=== PATIENT | male | born 1950 | race Caucasian/White ===

== ENCOUNTER 2017-08-03 20:53 | Inpatient (IN) | payer OTHER ==
[~2017-08-03] VITALS: Ht 170.2 cm; Wt 70.0 kg
[~2017-08-03 20:53] MED LIST: ALEVE220 M2 PO; ASPIR-TRIN325 M1 PO; BUSPAR10 MG PO; CHOLESTROL; EPIPEN ADU0.3 MG/0.3 IM; HTN MED; KEFLEX500 MG PO; LEXAPRO5 MG PO; LISINOPRIL10 MG PO; OMEGA-31000 M1 PO; PRAVACHOL20 MG PO; omega 3 PO
[2017-08-04 06:11] VITALS: BP 127/68
[2017-08-04 15:07] VITALS: BP 133/77
[2017-08-04 18:18] VITALS: BP 163/74
[2017-08-04 19:10] VITALS: BP 137/81
[2017-08-04 23:15] VITALS: BP 135/80
[2017-08-05 00:35] VITALS: BP 135/80
[2017-08-05 04:35] VITALS: BP 122/69
[2017-08-05 07:36] VITALS: BP 107/58
[2017-08-05 11:45] VITALS: BP 126/70
[2017-08-05 16:37] VITALS: BP 138/68
[2017-08-06 00:11] VITALS: BP 139/78
[2017-08-06] MEDS ORDERED: TIZANIDINE HCL4 MG PO (07:28)
[2017-08-06] MEDS ORDERED: HYDROCODON-ACE1 EAC7 PO (07:28)
[2017-08-06 08:08] VITALS: BP 158/89
[2017-08-06] MEDS ORDERED: ADULT FOLDING1 EACH MC (11:33)
== END 2017-08-06 12:05 | disposition home or self-care (01) | DRG 460 ==
LOC: ENRESERV 20:53 → 2SOUTH 08-04 05:26 → ENRESERV 08-04 12:50 → 2SOUTH 08-04 14:02 → 3EAST 08-04 14:19 → 2SOUTH 08-04 16:15 → 3EAST 08-06 12:05
DX: M48.07 Spinal stenosis, lumbosacral region (principal); M51.17 Intervertebral disc disorders with radiculopathy, lumbosacral region; M99.03 Segmental and somatic dysfunction of lumbar region; I10 Essential (primary) hypertension; E78.5 Hyperlipidemia, unspecified; G43.909 Migraine, unspecified, not intractable, without status migrainosus; G62.9 Polyneuropathy, unspecified; M19.90 Unspecified osteoarthritis, unspecified site; G90.511 Complex regional pain syndrome I of right upper limb; K21.9 Gastro-esophageal reflux disease without esophagitis; F32.9 Major depressive disorder, single episode, unspecified; F41.9 Anxiety disorder, unspecified; Z79.82 Long term (current) use of aspirin; Z87.891 Personal history of nicotine dependence
CPT/HCPCS: 72100; 76000; 86850; 86900; 86901; C1713; C1769; C1821; J0131; J0330; J0690; J1100; J1170; J2175; J2250; J2405; J2710; J3010; J3480

== ENCOUNTER 2017-08-20 10:53 | Emergency (ER) | payer OTHER ==
[~2017-08-20] VITALS: Ht 170.2 cm; Wt 62.4 kg
[~2017-08-20 10:53] MED LIST changes: +ADULT FOLDING1 EACH MC; +HYDROCODON-ACE1 EAC7 PO; +TIZANIDINE HCL4 MG PO
[2017-08-20] MEDS ORDERED: FISH OIL 1,0001 EA10 PO (13:20)
[2017-08-20] MEDS ORDERED: ASPIRIN325 MG PO (13:20)
[2017-08-20] MEDS ORDERED: LOTRISONE15 GM TP (14:03)
[2017-08-20] MEDS ORDERED: ATARAX,VISTARIL50 MG PO (14:03)
[2017-08-20 14:37] VITALS: BP 124/81
== END 2017-08-20 14:38 | disposition home or self-care (01) ==
LOC: EME 10:53
DX: R21 Rash and other nonspecific skin eruption (principal); L29.9 Pruritus, unspecified; Z98.890 Other specified postprocedural states; Z88.5 Allergy status to narcotic agent

== ENCOUNTER 2017-08-31 13:12 | Emergency (ER) | payer OTHER ==
[~2017-08-31] VITALS: Ht 167.6 cm; Wt 62.2 kg
[~2017-08-31 13:12] MED LIST changes: +ASPIRIN325 MG PO; +ATARAX,VISTARIL50 MG PO; +FISH OIL 1,0001 EA10 PO; +LOTRISONE15 GM TP
[2017-08-31 17:08] VITALS: BP 116/69
== END 2017-08-31 17:10 | disposition home or self-care (01) ==
LOC: EME 13:12
DX: S92.401A Displaced unspecified fracture of right great toe, initial encounter for closed fracture (principal); W01.0XXA Fall on same level from slipping, tripping and stumbling without subsequent striking against object, initial encounter; M54.5 Low back pain; Z98.1 Arthrodesis status; Z98.890 Other specified postprocedural states; K21.9 Gastro-esophageal reflux disease without esophagitis; Z87.891 Personal history of nicotine dependence; Z87.442 Personal history of urinary calculi; Z79.82 Long term (current) use of aspirin; Z88.5 Allergy status to narcotic agent
CPT/HCPCS: 72100; 73630; 99281; 99284

== ENCOUNTER → 2018-04-27 | Outpatient (CLI) | payer OTHER | END | disposition home or self-care (01) | LOC: RAD 09:01 | DX: I67.89 Other cerebrovascular disease (principal) | CPT/HCPCS: 70450 ==